=== PATIENT | male | born 1940 | race Caucasian/White ===

== ENCOUNTER 2017-07-10 15:21 | Inpatient (IN) ==
[2017-07-10] MEDS ORDERED: Ondansetron 4 MG/2 ML VIAL IVP PRN (20:28)
[2017-07-10] MEDS ORDERED: Naloxone 0.4 MG/ML INJ IVP PRN (20:28)
[2017-07-10] MEDS ORDERED: *HR* Dextrose 50 % in Water (Syg) 50 ML SYRINGE IVP PRN (20:32)
[2017-07-10] MEDS ORDERED: D5% in Water 1,000 ML IVC PRN (20:32)
[2017-07-10] MEDS ORDERED: Dextrose Gel 15 GM PO PRN ×2 (20:32)
--- NOTE | 2017-07-10 20:40 | Internal Med History&Physical ---
Date of Encounter: 07/10/17 Time of Encounter: 20:10 Assessment and Plan (1) Lower GI bleed Current visit: No Status: Acute Positive stool occult H&H low but acceptable, unclear of patient's baseline Hgb No recurrent bleeding episodes reported since arrival to [facility] will closely monitor H&H IV PPI NPO after midnight IV fluids F/U GI consult in am hold Aspirin at this time (2) Hyperkalemia Current visit: No Status: Acute Pt to receive Kayxelate, Calcium gluconate noted to have sinus tachycardia no discomfort reported will closely monitor (3) ROGER (acute kidney injury) Current visit: Yes Status: Acute Unclear of patient's baseline renal function He may have underlying CKD and this could be his baseline renal function will closely monitor at this time hold lisinopril at this time avoid nephrotoxic agents (4) HTN (hypertension) Current visit: Yes Status: Chronic BP within acceptable range pt reports of taking home meds this morning will hold lisinopril at this time, given renal function (unclear of baseline renal function) Hydralazine 10mg IV q6h prn SBP>160 will closely monitor BP Qualifiers: Hypertension type: essential hypertension Qualified Code(s): I10 - Essential (primary) hypertension (5) Diabetes mellitus Current visit: Yes Status: Chronic Repeat FS within acceptable range will continue home insulin dosing accuchecks q6h while NPO IV fluids will closely monitor FS and BG sliding scale insulin algorithm as needed Qualifiers: Diabetes mellitus type: type 2 Diabetes mellitus complication status: with unspecified complications Diabetes mellitus halfway insulin use: with lobsterman use Qualified Code(s): E11.8 - Type 2 diabetes mellitus with unspecified complications; 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 De Luna is a 77 year old male with PMH of HTN, DM, s/p aortic valve replacement, GERD, and morbid obesity who is transferred from [facility] for evaluation of LGIB. Patient reports of having BRBPR for the last three days. He states the blood is not mixed with his stools and has been getting worst for the last three days. 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 After arrival to the ER, he was found to have positive stool occult and was transferred to [facility] for further evaluation. AT this time he is resting in bed and denies any abd pain, n/v, fever, or chills. He states he had another episode of BRBPR at [facility]. Reports of taking aspirin but no other blood thinners. Denies any prior episodes of GI bleed. Reports of having a colonoscopy years ago which was normal as per the patient. He denies any trauma to the head from the fall, denies any headache,lightheadedness, sob, chest pain at this time. Denies any syncope or LOC preceding the fall. Social History: Never smoker, denies alcohol use Code status: Full code, appoints his (Sania De [phone]) as his POA Past Med Surg Social Fam HX - Past Medical History Medical history: arthritis, diabetes, GERD, hyperlipidemia Psychiatric history: depression - Past Surgical History Surgical History: cholecystectomy - Social History Smoking Status: Never smoker Smokeless Tobacco Status: No Alcohol use: none Drug use: none Internal Medicine - H&P: Meds Aspirin [Ecotrin] 325 mg PO DAILY 07/10/17 [History] Buspirone HCl [Buspar] 10 mg PO TID 07/10/17 [History] FLUoxetine HCl [PROzac] 20 mg PO DAILY 07/10/17 [History] Insulin ASPART [Novolog] 5 unit SQ BID 07/10/17 [History] Insulin Glargine [Lantus] 15 unit SQ BID 07/10/17 [History] Lisinopril [Zestril] 40 mg PO DAILY 07/10/17 [History] Metformin HCl [Glucophage] 1,000 mg PO BID 07/10/17 [History] Omeprazole 20 mg PO DAILY 07/10/17 [History] Oxybutynin [Ditropan] 5 mg PO BID 07/10/17 [History] 3 Allergy/AdvReac Type Severity Reaction Status Date / Time No Known Allergies Allergy Verified 07/10/17 10:45 All Systems PM: A 10-system review of systems was performed and is negative for pertinent findings except as documented above in the HPI. - Constitutional Constitutional: as per HPI - Constitutional Vitals: Temp Pulse Resp BP Pulse Ox 98.1 F 101 21 145/96 95 07/10/17 19:48 07/10/17 19:48 07/10/17 19:48 07/10/17 19:48 07/10/17 19:48 General appearance: Present: cooperative, A&O X 3, morbidly obese, pleasant, no acute distress, answers questions appropriately - Head Head exam: Present: atraumatic, normocephalic - Eye Eye exam: Present: conjuntiva pink, sclera anicteric - Respiratory Respiratory exam: Present: CTAB. Absent: respiratory distress, wheezes - Cardiovascular Cardiovascular exam: Present: clicks, +S1, +S2, tachycardia - Extremities Exam Extremities exam: Present: pedal edema (1+pitting edema in b/l LE ), warm, radial pulses palpable and symmetrical. Absent: calf tenderness Additional comments: left hand skin laceration - Neurological Exam Neurological exam: Present: alert, oriented X3 - Psychiatric Psychiatric exam: Present: normal affect, normal mood
[2017-07-10] MEDS: D5% in 0.45% NACL 1,000 ML IVC SCH (20:44)
[2017-07-10 21:03] LABS: Basophils % 0.3 %; Eosinophils # 0.1 K/mcL (0.0-0.6); Eosinophils % 1.6 %; Hematocrit 30.4 % (37.5-50.1); Hemoglobin 9.5 g/dL (12.9-16.9); Immature Platelets 1.1 % (1.1-6.1); Lymphocytes # 2.1 K/mcL (0.6-4.6); Lymphocytes % 23.9 %; Mean Corpuscular HGB Conc 31.3 g/dL (31.6-35.5); Mean Corpuscular Hemoglobin 25.2 pg (28.0-33.3); Mean Corpuscular Volume 80.6 fL (83.0-100.0); Mean Platelet Volume 8.3 fL (9.4-12.4); Monocytes # 0.7 K/mcL (0.0-1.3); Monocytes % 7.8 %; Neutrophils # 5.7 K/mcL (1.6-8.9); Platelet Count 266 K/mcL (140-400); Red Blood Count 3.77 M/mcL (4.19-5.50); Red Cell Distribution Width 14.6 % (11.5-14.5); Segmented Neutrophils % 65.4 %
[2017-07-10] MEDS: Insulin LISPRO 300 UNITS/3 ML VIAL SQ SCH (21:04)
[2017-07-10 21:15] LABS: BUN/Creatinine Ratio 29 (6-26); Blood Urea Nitrogen 35 mg/dL (8-26); Calcium 8.2 mg/dL (8.6-10.8); Carbon Dioxide 20 mEq/L (19-29); Chloride 107 mEq/L (98-109); Glucose 110 mg/dL (70-99); Magnesium 1.9 mg/dL (1.6-2.6); Osmolality,Calculated 293 (280-300); Phosphorous 2.3 mg/dL (2.3-4.7); Potassium 4.2 mEq/L (3.5-4.5); Sodium 137 mEq/L (136-145); eGFR For African Americans > 60 (> 60); eGFR For Non-African Americans 58 (> 60)
[2017-07-10] MEDS: Calcium Gluconate 1,000 MG in D5% in Water 100 ML IVPB ONE ×2 (21:20→21:39)
[2017-07-10] MEDS: Pantoprazole 40 MG VIAL IVP SCH (21:22)
[2017-07-10] MEDS: Insulin DETEMIR 100 UNIT/ML X5UNITS SQ SCH (21:36)
[2017-07-11] MEDS: D5% in 0.45% NACL 1,000 ML IVC SCH (07:26)
[2017-07-11] MEDS: Insulin LISPRO 300 UNITS/3 ML VIAL SQ SCH ×4 (07:40→17:15)
[2017-07-11] MEDS ORDERED: Lisinopril 20 MG TABLET PO SCH (09:00)
[2017-07-11] MEDS: Pantoprazole 40 MG VIAL IVP SCH ×2 (09:18→21:03)
[2017-07-11] MEDS: FLUoxetine 20 MG CAPSULE PO SCH (09:18)
[2017-07-11] MEDS: Insulin DETEMIR 100 UNIT/ML X5UNITS SQ SCH ×2 (09:44→21:03)
[2017-07-11 10:26] LABS: Basophils % 0.5 %; Eosinophils # 0.2 K/mcL (0.0-0.6); Eosinophils % 2.3 %; Hemoglobin 10.7 g/dL (12.9-16.9); Immature Granulocytes % 0.8 % (0-4); Lymphocytes # 1.5 K/mcL (0.6-4.6); Lymphocytes % 17.7 %; Mean Corpuscular HGB Conc 31.5 g/dL (31.6-35.5); Mean Corpuscular Hemoglobin 25.5 pg (28.0-33.3); Mean Corpuscular Volume 81.1 fL (83.0-100.0); Mean Platelet Volume 8.5 fL (9.4-12.4); Monocytes # 0.5 K/mcL (0.0-1.3); Monocytes % 6.2 %; Neutrophils # 6.2 K/mcL (1.6-8.9); Platelet Count 275 K/mcL (140-400); Red Blood Count 4.19 M/mcL (4.19-5.50); Red Cell Distribution Width 14.6 % (11.5-14.5); Segmented Neutrophils % 72.5 %
[2017-07-11 10:37] LABS: Alanine Aminotransferase 16 Units/L (0-55); Albumin 3.4 g/dL (3.5-5.0); Alkaline Phosphatase 80 Units/L (38-126); Aspartate Amino Transferase 15 Units/L (5-34); BUN/Creatinine Ratio 21 (6-26); Bilirubin,Total 0.4 mg/dL (0.2-1.2); Calcium 8.7 mg/dL (8.6-10.8); Carbon Dioxide 20 mEq/L (19-29); Chloride 106 mEq/L (98-109); Globulin 3.4 g/dL (2.4-3.5); Glucose 192 mg/dL (70-99); Magnesium 1.7 mg/dL (1.6-2.6); Osmolality,Calculated 293 (280-300); Phosphorous 2.4 mg/dL (2.3-4.7); Potassium 4.5 mEq/L (3.5-4.5); Sodium 137 mEq/L (136-145); Total Protein 6.8 g/dL (6.0-8.3); eGFR For African Americans > 60 (> 60); eGFR For Non-African Americans > 60 (> 60)
[2017-07-11 10:45] LABS: Blood Urea Nitrogen 23 mg/dL (8-26)
--- NOTE | 2017-07-11 11:12 | Internal Med Progress Note ---
Date of Encounter: 07/11/17 Time of Encounter: 11:11 - Assessment and plan (1) Lower GI bleed Current Visit: No Status: Acute Assessment and plan: GI consult. Plan for colonoscopy tomorrow. Avoid antiplatelets and antithrombotic. (2) HTN (hypertension) Current Visit: Yes Status: Chronic Assessment and plan: We will continue his home meds for blood pressure. Qualifiers: Hypertension type: essential hypertension Qualified Code(s): I10 - Essential (primary) hypertension (3) Diabetes mellitus Current Visit: Yes Status: Chronic Assessment and plan: We will treat him with basal insulin and sliding scale pre-meal coverage. 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 Avoid nephrotoxins. Creatinine has improved today. (5) DVT prophylaxis Current Visit: Yes Status: Acute (6) Morbid obesity with BMI of 40.0-44.9, adult Current Visit: Yes Status: Chronic Assessment and plan: Outpatient weight loss regimen. - Subjective Interval history: Patient reports one episode of dizziness/lightheadedness yesterday, no syncope or chest pain. He has had 3 days of multiple episodes of bright red blood per rectum. Denies associated abdominal pain, chest pain and shortness of breath. - Constitutional Vitals: Temp Pulse Resp BP Pulse Ox 97.9 F 104 20 133/83 97 07/11/17 07:47 07/11/17 07:47 07/11/17 07:47 07/11/17 07:47 07/11/17 07:47 General appearance: Present: cooperative, A&O X 3, morbidly obese, pleasant, no acute distress, answers questions appropriately - Eye Eye exam: Present: PERRL, conjuntiva pink, sclera anicteric Pupils: Present: PERRL - Respiratory Respiratory exam: Present: CTAB. Absent: accessory muscle use, rales, rhonchi, wheezes - Cardiovascular Cardiovascular exam: Present: RRR, +S1, +S2. Absent: diastolic murmur, gallop, rubs, systolic murmur - GI/Abdominal GI/Abdominal exam: Present: normal bowel sounds, soft, no peritoneal signs. Absent: distended, tenderness - Extremities Exam Extremities exam: Present: warm, radial pulses palpable and symmetrical. Absent : calf tenderness, cyanotic, pedal edema - Skin Skin exam: Present: dry, intact Internal Medicine: Result - Labs CBC & Chem 7: 07/11/17 10:15 07/11/17 10:15 Labs: Short CBC 07/10/17 07/11/17 Range/Units 20:52 10:15 WBC 8.7 8.6 (4.3-11.1) K/mcL Hgb 9.5 L 10.7 L (12.9-16.9) g/dL Hct 30.4 L 34.0 L (37.5-50.1) % Plt Count 266 275 (140-400) K/mcL Neutrophils # 5.7 6.2 (1.6-8.9) K/mcL BMP 07/10/17 07/11/17 20:52 10:15 Sodium 137 137 Potassium 4.2 D 4.5 Chloride 107 106 Carbon Dioxide 20 20 BUN 35 H 23 D Creatinine 1.22 1.11 Glucose 110 H 192 H Calcium 8.2 L 8.7 Liver Function 07/11/17 Range/Units 10:15 Total Bilirubin 0.4 (0.2-1.2) mg/dL AST 15 (5-34) Units/L ALT 16 (0-55) Units/L Alkaline Phosphatase 80 (38-126) Units/L Albumin 3.4 L (3.5-5.0) g/dL Consult Discharge Plan - Plan Referrals: Alice Soriano CNP [Primary Care Provider] - 07/19/17 3:15 pm
--- NOTE | 2017-07-11 11:58 | Gastroenterology Consult Note ---
Date of Encounter: 07/11/17 Time of Encounter: 10:45 - Assessment and plan (1) Lower GI bleed Current Visit: No Status: Acute Assessment and plan: Patient having BRBPR for 3 days prior to admission which had been worsening. Fecal occult blood test was positive. Plan for colonoscopy tomorrow. Clear liquid diet today, no red or purple. NPO at midnight. If unable tolerate NuLytely please use MiraLAX prep. If not clear by 6 AM, give 2 tap water enemas. (2) Anemia Current Visit: Yes Status: Acute Assessment and plan: Psychiatry to lower GI bleeding. Hemoglobin 9.5 yesterday and today Hgb 10.7. 2 monitor CBC and transfuse PRBC as needed. Plan for colonoscopy tomorrow. Iron and ferritin pending. Qualifiers: Anemia type: unspecified type Qualified Code(s): D64.9 - Anemia, unspecified - Time Spent With Patient Total time spent is greater than 50% in coordination of care (as documented) at patient's floor/unit and/or counseling patient: GI History of Present Illness - Data of Consult Patient: new to practice Consult date: 07/11/17 Requesting Physician: Omega Hurtado MD - Consult Narrative Reason for consult: LGIB History of present illness: Mr. De Luna is a 77 year old male with PMHx of arthritis, diabetes, GERD, hyperlipidemia, HTN,s/p aortic valve replacement, and morbid obesity who was transferred from [facility] ED for evaluation of a lower GI bleed. Patient reports having BRBPR for 3 days prior to admission, which has been worsening. 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 After arrival to the ER, he was found to have positive stool occult and was transferred to [facility] for further evaluation. He denies fever, chills, chest pain , abdominal pain, nausea, vomiting. Procedures: EGD 01/08/2009 Dr. Mckenna: Minimal inflammation, H. pylori negative. Colonoscopy 05/07/2009 Dr. Mckenna NSAIDs: ASA Anticoagulation: None Past Med Surg Social Fam HX - Past Medical History Medical history: arthritis, diabetes, GERD, hyperlipidemia Psychiatric history: depression - Past Surgical History Surgical History: cholecystectomy - Social History Smoking Status: Never smoker Smokeless Tobacco Status: No Alcohol use: none Drug use: none - Gastrointestinal Gastrointestinal: Present: as per HPI - Constitutional Constitutional: as per HPI - EENT Eyes: as per HPI Ears: Present: as per HPI Nose, mouth and throat: Present: as per HPI - Cardiovascular Cardiovascular ROS: Present: as per HPI - Respiratory Respiratory IM: Present: as per HPI - Genitourinary Genitourinary: Absent: change in color, Urinary frequency - Neurological ROS Neurological GI: Present: as per HPI - Hematologic/Lymphatic Hematologic/Lymphatic pediatric: Present: as per HPI - Musculoskeletal Musculoskeletal ROS GI: Present: as per HPI - Integumentary Integumentary GI: Present: as per HPI - Psychiatric ROS Psychiatric GI: Present: as per HPI - Endocrine Endocrine IM: Present: as per HPI - Constitutional Vitals: Temp Pulse Resp BP Pulse Ox 97.7 F 86 21 128/67 99 07/11/17 11:49 07/11/17 11:49 07/11/17 11:49 07/11/17 11:49 07/11/17 11:49 General appearance: Present: cooperative, A&O X 3, no acute distress, answers questions appropriately - Head Head exam: Present: atraumatic, normocephalic - Eye Eye exam: Present: normal appearance, sclera anicteric - ENT ENT exam: Present: mucous membranes dry - Neck Neck exam general surgery: Present: normal inspection, trachea midline - Respiratory Respiratory exam: Present: decreased breath sounds, CTAB - Cardiovascular Cardiovascular exam: Present: RRR, +S1, +S2 - GI/Abdominal GI/Abdominal exam: Present: soft, no peritoneal signs. Absent: distended, firm , guarding, tenderness - Rectal Rectal exam: Present: deferred - Extremities Exam Extremities exam: Present: warm - Neurological Exam Neurological exam: Present: no focal deficits - Psychiatric Psychiatric exam: Present: normal affect, normal mood - Skin Skin exam: Present: dry, intact, normal color, warm Results - Labs CBC & Chem 7: 07/11/17 10:15 07/11/17 10:15 Labs: Last Result Calcium 8.7 mg/dL (8.6-10.8) 07/11/17 10:15 Entire Visit Hgb 10.7 g/dL (12.9-16.9) L 07/11/17 10:15 Hct 34.0 % (37.5-50.1) L 07/11/17 10:15 Total Bilirubin 0.4 mg/dL (0.2-1.2) 07/11/17 10:15 AST 15 Units/L (5-34) 07/11/17 10:15 ALT 16 Units/L (0-55) 07/11/17 10:15 Consult Discharge Plan - Plan Referrals: Alice Soriano CNP [Primary Care Provider] - 07/19/17 3:15 pm Mario Alberto Samuels MD [Partnered Physician] - (SENT WEB REQUEST ON 07-11-17 @ [id number])
[2017-07-11 12:27] LABS: % Iron Saturation 15 % (20-55); Iron 52 mcg/dL (65-175); Transferrin 255 mg/dL (174-364)
[2017-07-11 12:50] LABS: Ferritin 65 ng/ml (22-275)
[2017-07-11] MEDS ORDERED: Methyl Salicylate/Menthol 28 GM TUBE TP PRN (15:40)
[2017-07-11] MEDS ORDERED: SODIUM CHLORIDE/NAHCO3/KCL/PEG 4,000 ML SOLN.RECON PO ONE (17:00)
[2017-07-12 05:01] LABS: Basophils % 0.5 %; Eosinophils # 0.3 K/mcL (0.0-0.6); Eosinophils % 3.1 %; Hematocrit 32.9 % (37.5-50.1); Hemoglobin 10.4 g/dL (12.9-16.9); Immature Granulocytes % 0.8 % (0-4); Lymphocytes # 2.2 K/mcL (0.6-4.6); Lymphocytes % 26.3 %; Mean Corpuscular HGB Conc 31.6 g/dL (31.6-35.5); Mean Corpuscular Hemoglobin 25.6 pg (28.0-33.3); Mean Platelet Volume 8.6 fL (9.4-12.4); Monocytes # 0.8 K/mcL (0.0-1.3); Monocytes % 8.9 %; Neutrophils # 5.2 K/mcL (1.6-8.9); Platelet Count 265 K/mcL (140-400); Red Blood Count 4.06 M/mcL (4.19-5.50); Red Cell Distribution Width 14.7 % (11.5-14.5); Segmented Neutrophils % 60.4 %
[2017-07-12 05:15] LABS: BUN/Creatinine Ratio 16 (6-26); Blood Urea Nitrogen 17 mg/dL (8-26); Calcium 8.8 mg/dL (8.6-10.8); Carbon Dioxide 21 mEq/L (19-29); Chloride 103 mEq/L (98-109); Glucose 151 mg/dL (70-99); Osmolality,Calculated 284 (280-300); Potassium 3.8 mEq/L (3.5-4.5); Sodium 135 mEq/L (136-145); eGFR For African Americans > 60 (> 60); eGFR For Non-African Americans > 60 (> 60)
[2017-07-12] MEDS: Insulin LISPRO 300 UNITS/3 ML VIAL SQ SCH ×4 (06:08→17:08)
--- NOTE | 2017-07-12 07:53 | Internal Med Progress Note ---
<Jennifer Pineda - Last Filed: 07/12/17 17:11> Date of Encounter: 07/12/17 Time of Encounter: 11:30 - Assessment and plan (1) Lower GI bleed Status: Acute Assessment and plan: BRBPR x 3 days. GI consulted and plans for colonoscopy today. Avoid antiplatelets and antithrombotic. Possible d/c home tomorrow depending upon colonoscopy results. Patient's hemoglobin is stable at 10.4. (2) ROGER (acute kidney injury) Status: Resolved Assessment and plan: Monitor kidney function. Avoid nephrotoxins. Creatinine normal. ROGER resolved. (3) Status post fall Status: Acute Assessment and plan: Fell without LOC after 3 days of BRBPR and obtained a hand laceration. Fall most likely due to decrease in hemoglobin 2/2 LGIB. F of 65% with normal L and R ventricular function, atypical septal motion consistent with post-operative status. (4) Diabetes mellitus Status: Chronic Assessment and plan: We will treat him with basal insulin and sliding scale pre-meal coverage. 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 Blood pressure is fairly well controlled. Plan: - [id number] PO daily - Hydralazine 10mg IVP Q6hr prn - Qualifiers: Hypertension type: essential hypertension Qualified Code(s): I10 - Essential (primary) hypertension (6) Morbid obesity with BMI of 40.0-44.9, adult Status: Chronic Assessment and plan: Outpatient weight loss regimen. (7) Hyperkalemia Status: Resolved Assessment and plan: Initial presenting K=5.8 at [facility]. Given Kayxelate and Calcium gluconate. Hyperkalemia has resolved. (8) DVT prophylaxis Status: Acute Assessment and plan: SCD due to LGIB should not be put on anticoagulants. (9) Anxiety Status: Acute Assessment and plan: Continue home medications of Buspar and Prozac. (10) Anemia Status: Acute Assessment and plan: Initially Hemoglobin =9.5. MCV currently 81. Macrocytic anemia with Fe=52, %sat = 15, normal transferrin and ferritin. Currently 10.4 improved since admission. Stable. Qualifiers: Anemia type: unspecified type Qualified Code(s): D64.9 - Anemia, unspecified - Subjective Interval history: Patient is a 77-year-old male with a past medical history of hypertension, diabetes, status post aortic valve replacement, and GERD who was discharged and admitted from [facility] for evaluation of lower GI bleed for 3 days post- fall. Today patient says that he feels like he is doing better. He says that his stools have gotten darker in that they are not bright red anymore. Patient is currently on GoLYTELY as he has a colonoscopy could be scheduled for 4:30pm. Patient currently denies nausea, vomiting, abdominal pain, shortness breath, chest pain. - Constitutional Vitals: Temp Pulse Resp BP Pulse Ox 97.9 F 126 16 154/104 99 07/12/17 03:55 07/12/17 03:55 07/12/17 03:55 07/12/17 03:55 07/12/17 03:55 General appearance: Present: cooperative, A&O X 3, morbidly obese, pleasant, no acute distress, answers questions appropriately Exam: Constitutional: Alert, in no acute distress, well nourished, well developed. Head: Normocephalic, atraumatic, normal contour and symmetric, no masses, lesions or scars Heart: Normal, regular rate and rhythm, no murmurs Lungs: Clear to auscultation, no wheezes, rales, or rhonchi Abdomen: Soft, nondistended, nontender, and no masses palpable, bowel sounds present and normal, no guarding or rigidity. Extremities: No clubbing, cyanosis, or edema, radial pulse +2/4, capillary refill <2sec. Skin: Skin warm and dry, no lesions, no rashes, no jaundice Neurologic: Cranial nerves II through XII grossly intact, no focal deficits, strength within normal limits in all extremities Psych: Cooperative with exam, good eye contact, cognitive function intact, judgment good insight good, speech clear, thought process logical, and goal directed Internal Medicine: Result - Labs CBC & Chem 7: 07/12/17 04:20 07/12/17 04:20 Labs: Short CBC 07/11/17 07/12/17 Range/Units 10:15 04:20 WBC 8.6 8.5 (4.3-11.1) K/mcL Hgb 10.7 L 10.4 L (12.9-16.9) g/dL Hct 34.0 L 32.9 L (37.5-50.1) % Plt Count 275 265 (140-400) K/mcL Neutrophils # 6.2 5.2 (1.6-8.9) K/mcL BMP 07/11/17 07/12/17 10:15 04:20 Sodium 137 135 L Potassium 4.5 3.8 Chloride 106 103 Carbon Dioxide 20 21 BUN 23 D 17 Creatinine 1.11 1.09 Glucose 192 H 151 H Calcium 8.7 8.8 Liver Function 07/11/17 Range/Units 10:15 Total Bilirubin 0.4 (0.2-1.2) mg/dL AST 15 (5-34) Units/L ALT 16 (0-55) Units/L Alkaline Phosphatase 80 (38-126) Units/L Albumin 3.4 L (3.5-5.0) g/dL - VTE Documentation of Mechanical Device: Intermittent pneumatic compression device Consult Discharge Plan - Plan Instructions: Gastrointestinal Bleeding (DC), Diabetes Mellitus Type 2 in Adults (DC) Additional Instructions: - Follow up with your primary care physician in 1-2 weeks. - Follow up with Dr. Samuels in 1-2 weeks. - Hold Aspirin for 1 week then can resume. Referrals: Alice Soriano CNP [Primary Care Provider] - 07/19/17 3:15 pm Mario Alberto Samuels MD [Partnered Physician] - (SENT WEB REQUEST ON 07-11-17 @ [phone]) Prescriptions: Omeprazole 40 mg PO DAILY #28 tablet. <Omega Hurtado - Last Filed: 07/13/17 17:18> Date of Encounter: 07/12/17 - Assessment and plan (1) Lower GI bleed Status: Acute (2) HTN (hypertension) Status: Chronic Qualifiers: Hypertension type: essential hypertension Qualified Code(s): I10 - Essential (primary) hypertension (3) Diabetes mellitus Status: Chronic Qualifiers: Diabetes mellitus type: type 2 Diabetes mellitus complication status: with unspecified complications Diabetes mellitus manager intermediate insulin use: with manager intermediate use Qualified Code(s): E11.8 - Type 2 diabetes mellitus with unspecified complications; Z79.4 - manager intermediate (current) use of insulin (4) ROGER (acute kidney injury) Status: Resolved (5) DVT prophylaxis Status: Acute (6) Morbid obesity with BMI of 40.0-44.9, adult Status: Chronic - Constitutional Vitals: Temp Pulse Resp BP Pulse Ox 99.1 F 99 16 146/103 96 07/12/17 11:14 07/12/17 13:50 07/12/17 11:14 07/12/17 11:14 07/12/17 11:14 Internal Medicine: Result - Labs CBC & Chem 7: 07/13/17 04:05 07/13/17 04:05 Labs: Short CBC 07/12/17 Range/Units 04:20 WBC 8.5 (4.3-11.1) K/mcL Hgb 10.4 L (12.9-16.9) g/dL Hct 32.9 L (37.5-50.1) % Plt Count 265 (140-400) K/mcL Neutrophils # 5.2 (1.6-8.9) K/mcL BMP 07/12/17 04:20 Sodium 135 L Potassium 3.8 Chloride 103 Carbon Dioxide 21 BUN 17 Creatinine 1.09 Glucose 151 H Calcium 8.8 - Impressions Impressions Echocardiogram 07/11/17 20:55 Impressions: LVEF 60-65%. Normal LV chamber size and function. Mild concentric left ventricular hypertrophy. Mild left ventricular diastolic dysfunction. Atypical septal motion consistent with post-operative status. Normal right ventricular structure and function. Moderately dilated left atrium. Bioprosthetic aortic valve appears well seated in the LVOT. Leaflets were not well visualized. 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 Correlate with size and type of valve. No aortic regurgitation. No evidence of pulmonary hypertension. Left Ventricular Wall Motion: Rest Echo Findings All wall segments showed normal motion. Findings: Study Quality * Technically adequate exam. ECG Findings * Normal sinus rhythm. Left Ventricle * LVEF 60-65%. * Normal LV chamber size and function. * Mild concentric left ventricular hypertrophy. * Mild left ventricular diastolic dysfunction. * Atypical septal motion consistent with post-operative status. Right Ventricle * Normal right ventricular structure and function. Left Atrium * Moderately dilated left atrium. Right Atrium * Mildly dilated right atrium. Aortic Valve * Bioprosthetic aortic valve appears well seated in the LVOT. Leaflets were not well visualized. 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 Correlate with size and type of valve. * No aortic regurgitation. Mitral Valve * Mild mitral annular calcification * No mitral stenosis. * No mitral regurgitation. Tricuspid Valve * Normal tricuspid valve structure and function. * Trace tricuspid regurgitation. * No evidence of pulmonary hypertension. Pulmonic Valve * Pulmonic valve is not well visualized. * No pulmonic regurgitation. Aorta * Normally sized aortic root. Pericardium * The pericardium appears normal. IVC * Normal IVC dimensions and inspiratory collapse. Pulmonary Artery * Normal visualized portions of the main pulmonary artery. - Attending Attestation I examined this patient and my medical decision-making was reviewed with the Resident Physician. I agree with the documented findings, disposition and treatment plan as described except to the extent set forth below. Patient is in no acute distress. He had had no recurrent rectal bleeding today. His abdomen is obese, soft, nontender. Plan: Colonoscopy today. We will follow up hemoglobin and hematocrit.
[2017-07-12] MEDS: Insulin DETEMIR 100 UNIT/ML X5UNITS SQ SCH ×2 (09:01→20:46)
[2017-07-12] MEDS: Pantoprazole 40 MG VIAL IVP SCH ×2 (09:02→20:46)
[2017-07-12] MEDS: FLUoxetine 20 MG CAPSULE PO SCH (09:02)
[2017-07-12] MEDS ORDERED: *HR* Midazolam HCl 5 MG/5 ML VIAL IVP ONE (18:16)
[2017-07-12] MEDS ORDERED: *HR* FentaNYL (PF) 100 MCG/2 ML VIAL ONE (18:17)
[2017-07-12] MEDS ORDERED: *HR* FentaNYL (PF) 100 MCG/2 ML VIAL IVP PRN (18:34)
[2017-07-12] MEDS ORDERED: *HR* Midazolam HCl 5 MG/5 ML VIAL IVP PRN (18:34)
[2017-07-12] MEDS ORDERED: Simethicone 40 MG/0.6 ML MLS IR ONE (18:34)
--- NOTE | 2017-07-12 18:35 | Pre-Sedation Evaluation ---
Pre-sedation evaluation - Pre-sedation checklist Date of procedure: 07/12/17 Recent Vitals: Last Vital Signs Temp 99.1 F 07/12/17 11:14 Pulse 99 07/12/17 13:50 Resp 16 07/12/17 11:14 BP 146/103 07/12/17 11:14 Pulse Ox 96 07/12/17 11:14 ASA Classification *see protocol: CLASS III-Severe systemic disease Plan of Care: Pt appropriate candidate for procedure/moderate/conscious sedation , Risks/benefits of procedure/sedation discussed w/ patient/family
[2017-07-12] MEDS ORDERED: Polyethylene Glycol 3350 255 GM POWDER PO ONE (19:00)
[2017-07-13] MEDS: Insulin LISPRO 300 UNITS/3 ML VIAL SQ SCH ×2 (02:11→05:32)
[2017-07-13 04:56] LABS: Basophils % 0.5 %; Eosinophils # 0.2 K/mcL (0.0-0.6); Hematocrit 34.8 % (37.5-50.1); Hemoglobin 10.8 g/dL (12.9-16.9); Immature Granulocytes % 1.2 % (0-4); Lymphocytes # 1.7 K/mcL (0.6-4.6); Lymphocytes % 22.4 %; Mean Corpuscular Hemoglobin 25.5 pg (28.0-33.3); Mean Corpuscular Volume 82.3 fL (83.0-100.0); Mean Platelet Volume 8.6 fL (9.4-12.4); Monocytes # 0.8 K/mcL (0.0-1.3); Monocytes % 10.4 %; Neutrophils # 4.6 K/mcL (1.6-8.9); Nucleated Red Blood Cells 0.3 /100 WBC (0); Platelet Count 276 K/mcL (140-400); Red Blood Count 4.23 M/mcL (4.19-5.50); Red Cell Distribution Width 14.9 % (11.5-14.5); Segmented Neutrophils % 62.5 %
[2017-07-13 05:23] LABS: BUN/Creatinine Ratio 14 (6-26); Blood Urea Nitrogen 15 mg/dL (8-26); Calcium 9.2 mg/dL (8.6-10.8); Carbon Dioxide 19 mEq/L (19-29); Chloride 104 mEq/L (98-109); Glucose 149 mg/dL (70-99); Magnesium 1.7 mg/dL (1.6-2.6); Osmolality,Calculated 286 (280-300); Potassium 4.2 mEq/L (3.5-4.5); Sodium 136 mEq/L (136-145); eGFR For African Americans > 60 (> 60); eGFR For Non-African Americans > 60 (> 60)
[2017-07-13] MEDS: Pantoprazole 40 MG VIAL IVP SCH (08:25)
[2017-07-13] MEDS: Insulin DETEMIR 100 UNIT/ML X5UNITS SQ SCH (08:25)
--- NOTE | 2017-07-13 09:22 | Anesthesia Evaluation PreOp ---
Date of Encounter: 07/13/17 Time of Encounter: 09:20 - Past History Planned Operation: Colonoscopy Cardiac History: HTN, Cardiac Surgery (S/P AVR) Pulmonary History: Former smoker (quit 40 years) [employer]ER History: Denies Any Significant HX Other Medical History: Diabetes Type II, GERD, Other (depression) Anesthesia History: No Prior Anesthetic Complications, Past Anesthesia Alcohol Use: none Drug use: none Medications and Allergies Aspirin [Ecotrin] 325 mg PO DAILY 07/10/17 [History] Buspirone HCl [Buspar] 10 mg PO TID 07/10/17 [History] FLUoxetine HCl [PROzac] 20 mg PO DAILY 07/10/17 [History] Insulin ASPART [Novolog] 5 unit SQ BID 07/10/17 [History] Insulin Glargine [Lantus] 15 unit SQ BID 07/10/17 [History] Lisinopril [Zestril] 40 mg PO DAILY 07/10/17 [History] Metformin HCl [Glucophage] 1,000 mg PO BID 07/10/17 [History] Omeprazole 20 mg PO DAILY 07/10/17 [History] Oxybutynin [Ditropan] 5 mg PO BID 07/10/17 [History] 3 Allergy/AdvReac Type Severity Reaction Status Date / Time No Known Allergies Allergy Verified 07/10/17 10:45 - Meds/Allergy Pre-op Review Medications Reviewed: Yes Allergies Reviewed: Yes Beta Blockers on Current Med List: No Anesthesia Results - Labs 07/13/17 04:05 07/13/17 04:05 - Imaging EKG: report reviewed (07/10/2017 SINUS TACHYCARDIA RIGHT BUNDLE BRANCH BLOCK) Additional studies: 07/11/2017 Echo LVEF 60-65% mild concentric LVH mild LV diastolic dysfunction moderately dilated LA bioprosthetic AV 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, mean gradient 22 mm Hg Anesthesia Exam Vital Signs/O2 Sat/Glucose, Most Recent Temp Pulse Resp BP Pulse Ox 97.0 F L 94 16 169/99 96 07/13/17 09:22 07/13/17 09:22 07/13/17 09:22 07/13/17 09:22 07/13/17 09:22 Blood Glucose* 182 Height: 5'7''/1.7 m Weight: 255 lbs/115.7 kg NPO (# of Hours): 8 Pain Scale: 0 Pain Scale Used: Numeric (1 - 10) - HEENT Pupil (Motor): EOMI Mallampati: II Teeth: Edentulous Oral Opening: Greater than 3 - [employer]ER LOC: Oriented [employer]ER Motor: Normal RUE, Normal LUE, Normal RLE, Normal LLE, Normal Face [employer]ER Sensory: Normal: RUE, LUE, RLE, LLE, Face - Cardiac Rhythm: Regular Murmur: None - Pulmonary Breath Sounds: bilateral Clear (distant BS) Respiratory Effort: Symmetrical Anesthesia Assess/Plan ASA Score: 3 Modified Tom Scale for Level of Consciousness: Cooperative, oriented, and tranquil Anesthetic Plan: MAC Monitoring Plan: Standard Monitors
[2017-07-13 09:23] VITALS: BP 169/99
[2017-07-13] MEDS ORDERED: 0.9 % Sodium Chloride 1,000 ML IVC SCH (09:30)
[2017-07-13] MEDS: FLUoxetine 20 MG CAPSULE PO SCH (10:44)
--- NOTE | 2017-07-13 11:31 | Discharge Summary ---
<Jennifer Pineda - Last Filed: 07/13/17 16:34> Date of Encounter: 07/13/17 Time of Encounter: 10:00 - Discharge Diagnosis (1) Lower GI bleed Priority: Primary Status: Acute (2) ROGER (acute kidney injury) Priority: Primary Status: Resolved (3) Status post fall Priority: Primary Status: Acute (4) Diabetes mellitus Priority: Secondary Status: Chronic Qualifiers: Diabetes mellitus type: type 2 Diabetes mellitus complication status: with unspecified complications Diabetes mellitus long term care pharmacist insulin use: with halfway use Qualified Code(s): E11.8 - Type 2 diabetes mellitus with unspecified complications; 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 of 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 (5) HTN (hypertension) Priority: Secondary Status: Chronic Qualifiers: Hypertension type: essential hypertension Qualified Code(s): I10 - Essential (primary) hypertension (6) Morbid obesity with BMI of 40.0-44.9, adult Priority: Secondary Status: Chronic (7) Hyperkalemia Priority: Primary Status: Resolved (8) DVT prophylaxis Priority: Primary Status: Acute (9) Anxiety Priority: Secondary Status: Acute (10) Anemia Priority: Primary Status: Acute Qualifiers: Anemia type: unspecified type Qualified Code(s): D64.9 - Anemia, unspecified - Discharge Medications Prescriptions: Omeprazole 40 mg PO DAILY #28 tablet.dr Waters Medications: Buspirone HCl [Buspar] 10 mg PO TID 07/10/17 [History] FLUoxetine HCl [Prozac] 20 mg PO DAILY 07/10/17 [History] Insulin ASPART [Novolog] 5 unit SQ BID 07/10/17 [History] Insulin Glargine [Lantus] 15 unit SQ BID 07/10/17 [History] Lisinopril [Zestril] 40 mg PO DAILY 07/10/17 [History] Metformin HCl [Glucophage] 1,000 mg PO BID 07/10/17 [History] Oxybutynin [Ditropan] 5 mg PO BID 07/10/17 [History] Omeprazole 40 mg PO DAILY #28 tablet. 07/13/17 [Rx] Allergies/Adverse Reactions: 3 Allergy/AdvReac Type Severity Reaction Status Date / Time No Known Allergies Allergy Verified 07/10/17 10:45 Procedures/tests Complete & Pending: Procedures Performed prior 72 hours Category Date Time Status EV echocardiogram Routine Y 07/11/17 20:55 Completed Date of admission: 07/10/17 19:31 Primary care physician: Alice Soriano Consults: 07/10/17 20:07 Consult to Pastoral Services [CONS] Routine Comment: 07/10/17 20:30 Consult to Gastroenterology [CONS] Routine Consulting Provider: Benjamin Reed Reason for Consult: LGIB Call Completed: No - Patient Status Disposition: Home, Self-Care Condition: Good Functional capacity at discharge: independent ambulation Overall status at discharge: patient is progressing back to baseline - Discharge Instructions Instructions: Gastrointestinal Bleeding (DC), Diabetes Mellitus Type 2 in Adults (DC) Follow Up With: Alice Soriano CNP [Primary Care Provider] - 07/19/17 3:15 pm Mario Alberto Samuels MD [Partnered Physician] - (SENT WEB REQUEST ON 07-11-17 @ 1557) Additional Instructions: - Follow up with your primary care physician in 1-2 weeks. - Follow up with Dr. Samuels in 1-2 weeks. - Hold Aspirin for 1 week then can resume. - Diet and Activity Activity: increase activity as tolerated Diet: diabetic diet Hospital course: Mr. De Luna is a 77 year old male with a past medical history of hypertension, diabetes, status post aortic valve replacement, GERD and morbid obesity who presented as a transferred from [facility] for evaluation of LGIB after 3 days of bright red blood per rectum then got dizzy and fell without loss of consciousness. Patient's hemoglobin was 9.5 on admission and proceeded to go out over the next couple of days as bowel movements became darker. In no more bright red blood seen.. Colonoscopy showed multiple medium mouth diverticula in the sigmoid colon and descending colon and nonbleeding internal hemorrhoids. The hemorrhoids were grade 2 which did prolapse reduced spontaneously. Patient's discharged home with a follow-up for her primary care physician in one to 2 weeks and he will hold his aspirin for 1 week and to increase his omeprazole to 40 mg twice a day. - Time Spent with Patient Total time spent providing and/or coordinating discharge services: - Constitutional Vitals: Temp Pulse Resp BP Pulse Ox 97.0 F L 94 16 169/99 96 07/13/17 09:22 07/13/17 09:22 07/13/17 09:22 07/13/17 09:22 07/13/17 09:22 General appearance: Present: cooperative, A&O X 3, morbidly obese, pleasant, no acute distress, answers questions appropriately Exam: Constitutional: Alert, in no acute distress, well nourished, well developed. Head: Normocephalic, atraumatic, normal contour and symmetric, no masses, lesions or scars Heart: Normal, regular rate and rhythm, no murmurs Lungs: Clear to auscultation, no wheezes, rales, or rhonchi Abdomen: Soft, nondistended, nontender, and no masses palpable, bowel sounds present and normal, no guarding or rigidity. Extremities: No clubbing, cyanosis, or edema, radial pulse +2/4, capillary refill <2sec. Skin: Skin warm and dry, no lesions, no rashes, no jaundice Neurologic: Cranial nerves II through XII grossly intact, no focal deficits, strength within normal limits in all extremities Psych: Cooperative with exam, good eye contact, cognitive function intact, judgment good insight good, speech clear, thought process logical, and goal directed - VTE Documentation of Mechanical Device: Intermittent pneumatic compression device <Omega Hurtado - Last Filed: 07/13/17 18:04> Date of Encounter: 07/13/17 - Discharge Diagnosis (1) Lower GI bleed Status: Acute (2) HTN (hypertension) Status: Chronic Qualifiers: Hypertension type: essential hypertension Qualified Code(s): I10 - Essential (primary) hypertension (3) Diabetes mellitus Status: Chronic Qualifiers: Diabetes mellitus type: type 2 Diabetes mellitus complication status: with unspecified complications Diabetes mellitus long term care pharmacist insulin use: with long term care pharmacist use Qualified Code(s): E11.8 - Type 2 diabetes mellitus with unspecified complications; Z79.4 - [facility] (current) use of insulin (4) ROGER (acute kidney injury) Status: Resolved (5) DVT prophylaxis Status: Acute (6) Morbid obesity with BMI of 40.0-44.9, adult Status: Chronic Procedures/tests Complete & Pending: Procedures Performed prior 72 hours Category Date Time Status EV echocardiogram Routine Y 07/11/17 20:55 Completed Date of admission: 07/10/17 19:31 Primary care physician: Alice Soriano Consults: 07/10/17 20:07 Consult to Pastoral Services [CONS] Routine Comment: 07/10/17 20:30 Consult to Gastroenterology [CONS] Routine Consulting Provider: Benjamin Reed Reason for Consult: LGIB Call Completed: No Hospital course: Mr. De Luna is a 77 year old male - Time Spent with Patient Total time spent providing and/or coordinating discharge services: - Constitutional Vitals: Temp Pulse Resp BP Pulse Ox 97.0 F L 117 16 169/99 96 07/13/17 09:22 07/13/17 11:22 07/13/17 09:22 07/13/17 09:22 07/13/17 09:22 - Attending Attestation I examined this patient and my medical decision-making was reviewed with the Resident Physician. I agree with the documented findings, disposition and treatment plan as described except to the extent set forth below. Patient had repeat colonoscopy this morning which found no active bleeding. Only findings were diverticulosis and internal hemorrhoids. He is medically stable for discharge home.
[2017-07-13] MEDS ORDERED: FLUARIX QUAD 2017-18 36MOS UP/PF 0.5 ML SYRINGE IM ONE (11:48)
[2017-07-13] MEDS ORDERED: *HR* Propofol 200 MG/20 ML VIAL IVP ONE (12:10)
[2017-07-13] MEDS ORDERED: Lidocaine -MPF 2% 5 ML VIAL INFILT ONE (12:10)
== END 2017-07-13 12:11 | disposition home or self-care (01) | DRG 378 ==
LOC: 2NNU 19:31
PROVIDERS: ADMIT Family Medicine; ATTEND Internal Medicine

== ENCOUNTER 2019-10-28 20:35 | Inpatient (IN) ==
[2019-10-29] MEDS ORDERED: Naloxone 0.4 MG/ML INJ IVP PRN (01:27)
[2019-10-29] MEDS ORDERED: *HR* Metoprolol 5 MG/5 ML VIAL IVP SCH (01:30)
[2019-10-29] MEDS ORDERED: *HR* Dextrose 50 % in Water (Syg) 50 ML SYRINGE IVP PRN (01:30)
[2019-10-29] MEDS ORDERED: D5% in Water 1,000 ML IVC PRN (01:30)
[2019-10-29] MEDS ORDERED: Dextrose Gel 15 GM/37.5 ML TUBE PO PRN ×2 (01:30)
[2019-10-29] MEDS: Insulin LISPRO 300 UNITS/3 ML VIAL SQ SCH ×5 (01:58→21:50)
[2019-10-29 02:15] LABS: Basophils # 0.1 K/mcL (0.0-0.2); Basophils % 0.6 %; Eosinophils # 0.2 K/mcL (0.0-0.6); Eosinophils % 2.3 %; Hematocrit 39.9 % (37.5-50.1); Hemoglobin 11.9 g/dL (12.9-16.9); Immature Reticulocyte % 30.8 % (11.0-38.0); Lymphocytes # 1.3 K/mcL (0.6-4.6); Lymphocytes % 16.2 %; Mean Corpuscular HGB Conc 29.8 g/dL (31.6-35.5); Mean Corpuscular Hemoglobin 21.5 pg (28.0-33.3); Mean Corpuscular Volume 72.2 fL (83.0-100.0); Mean Platelet Volume 8.5 fL (9.4-12.4); Monocytes # 0.5 K/mcL (0.0-1.3); Monocytes % 6.4 %; Neutrophils # 6.1 K/mcL (1.6-8.9); Platelet Count 222 K/mcL (140-400); Red Blood Count 5.53 M/mcL (4.19-5.50); Red Cell Distribution Width 17.8 % (11.5-14.5); Retculocyte # 0.08 M/mcL (0.05-0.10); Reticulocyte % 1.3 % (1.6-2.8); Segmented Neutrophils % 73.5 %; White Blood Count 8.3 K/mcL (4.3-11.1)
[2019-10-29 02:17] LABS: INR 1.4; Prothrombin Time 15.5 Seconds (9.4-12.1)
[2019-10-29 02:38] LABS: Alanine Aminotransferase 14 Units/L (7-52); Albumin/Globulin Ratio 0.9 (1.1-2.2); Alkaline Phosphatase 107 Units/L (34-104); Aspartate Amino Transferase 17 Units/L (13-39); BUN/Creatinine Ratio 24 (6-26); Bilirubin,Total 0.4 mg/dL (0.3-1.0); Blood Urea Nitrogen 25 mg/dL (8-23); Calcium 8.1 mg/dL (8.6-10.3); Carbon Dioxide 21 mEq/L (23-29); Chloride 102 mEq/L (98-107); Creatine Kinase 170 Units/L (30-223); Globulin 3.3 g/dL (2.4-3.5); Glucose 315 mg/dL (70-105); Magnesium 1.5 mg/dL (1.6-2.6); Osmolality,Calculated 294 (280-300); Phosphorous 2.2 mg/dL (2.7-4.5); Potassium 3.9 mEq/L (3.5-5.1); Sodium 134 mEq/L (136-145); Total Protein 6.3 g/dL (6.4-8.9); eGFR For African Americans > 60 (> 60); eGFR For Non-African Americans > 60 (> 60)
[2019-10-29 02:51] LABS: Thyroid Stimulating Hormone 2.418 mcIU/mL (0.340-5.600)
[2019-10-29] MEDS ORDERED: 0.9 % Sodium Chloride 1,000 ML IVC SCH ×2 (04:15→07:30)
[2019-10-29 08:29] LABS: Estimated Average Glucose 312 mg/dl
[2019-10-29] MEDS: Sodium Ferric Gluconat/Sucrose 125 MG in 0.9 % Sodium Chloride 100 ML IVPB SCH (11:06)
[2019-10-29] MEDS: *HR* LORazepam 1 MG TABLET PO PRN ×2 (14:43→21:48)
[2019-10-29] MEDS: Apixaban 5 MG TABLET PO SCH (21:48)
[2019-10-29] MEDS: Insulin DETEMIR 100 UNIT/ML X5UNITS SQ SCH (21:49)
[2019-10-30 04:52] LABS: Hematocrit 41.3 % (37.5-50.1); Hemoglobin 12.4 g/dL (12.9-16.9); Mean Corpuscular Hemoglobin 21.8 pg (28.0-33.3); Mean Corpuscular Volume 72.7 fL (83.0-100.0); Mean Platelet Volume 8.7 fL (9.4-12.4); Platelet Count 252 K/mcL (140-400); Red Blood Count 5.68 M/mcL (4.19-5.50); White Blood Count 8.1 K/mcL (4.3-11.1)
[2019-10-30 05:10] LABS: BUN/Creatinine Ratio 21 (6-26); Blood Urea Nitrogen 20 mg/dL (8-23); Calcium 8.5 mg/dL (8.6-10.3); Carbon Dioxide 24 mEq/L (23-29); Chloride 104 mEq/L (98-107); Glucose 288 mg/dL (70-105); Osmolality,Calculated 291 (280-300); Sodium 134 mEq/L (136-145); eGFR For African Americans > 60 (> 60); eGFR For Non-African Americans > 60 (> 60)
[2019-10-30] MEDS ORDERED: Acetaminophen 325 MG TABLET PO ONE (06:34)
[2019-10-30] MEDS: Sodium Ferric Gluconat/Sucrose 125 MG in 0.9 % Sodium Chloride 100 ML IVPB SCH (08:42)
[2019-10-30] MEDS: Apixaban 5 MG TABLET PO SCH ×2 (08:44→20:26)
[2019-10-30] MEDS: Insulin LISPRO 300 UNITS/3 ML VIAL SQ SCH ×4 (08:49→20:26)
[2019-10-30] MEDS: Insulin DETEMIR 100 UNIT/ML X5UNITS SQ SCH ×2 (10:17→20:26)
[2019-10-30] MEDS ORDERED: Fluconazole 100 MG TABLET PO ONE (10:52)
[2019-10-30] MEDS: Nystatin POWDER 30 GM BOTTLE TP SCH ×2 (12:07→20:27)
[2019-10-30] MEDS: *HR* LORazepam 1 MG TABLET PO PRN ×2 (14:07→20:25)
[2019-10-31] MEDS: Clobetasol Propionate 0.05% 15 GM Cream Tube TP SCH ×3 (02:48→20:11)
[2019-10-31 06:44] LABS: Hematocrit 44.2 % (37.5-50.1); Hemoglobin 13.2 g/dL (12.9-16.9); Mean Corpuscular HGB Conc 29.9 g/dL (31.6-35.5); Mean Corpuscular Hemoglobin 21.5 pg (28.0-33.3); Mean Platelet Volume 8.4 fL (9.4-12.4); Platelet Count 286 K/mcL (140-400); Red Blood Count 6.14 M/mcL (4.19-5.50); Red Cell Distribution Width 18.8 % (11.5-14.5); White Blood Count 8.8 K/mcL (4.3-11.1)
[2019-10-31 06:51] LABS: BUN/Creatinine Ratio 18 (6-26); Blood Urea Nitrogen 17 mg/dL (8-23); Calcium 8.7 mg/dL (8.6-10.3); Carbon Dioxide 21 mEq/L (23-29); Chloride 100 mEq/L (98-107); Glucose 255 mg/dL (70-105); Osmolality,Calculated 288 (280-300); Potassium 4.4 mEq/L (3.5-5.1); Sodium 134 mEq/L (136-145); eGFR For African Americans > 60 (> 60); eGFR For Non-African Americans > 60 (> 60)
[2019-10-31] MEDS: Cefuroxime PO 500 MG TABLET PO SCH ×2 (09:23→16:54)
[2019-10-31] MEDS: Eucerin Cream 57 GM TUBE TP PRN (09:24)
[2019-10-31] MEDS: Apixaban 5 MG TABLET PO SCH ×2 (09:24→20:10)
[2019-10-31] MEDS: Insulin DETEMIR 100 UNIT/ML X5UNITS SQ SCH ×2 (09:24→20:11)
[2019-10-31] MEDS: Nystatin POWDER 30 GM BOTTLE TP SCH ×2 (09:24→20:11)
[2019-10-31] MEDS: Sodium Ferric Gluconat/Sucrose 125 MG in 0.9 % Sodium Chloride 100 ML IVPB SCH (09:27)
[2019-10-31] MEDS: Insulin LISPRO 300 UNITS/3 ML VIAL SQ SCH ×4 (09:33→20:10)
[2019-11-01] MEDS: *HR* LORazepam 1 MG TABLET PO PRN ×2 (00:23→14:21)
[2019-11-01] MEDS: Cefuroxime PO 500 MG TABLET PO SCH ×2 (06:28→17:08)
[2019-11-01] MEDS: Insulin LISPRO 300 UNITS/3 ML VIAL SQ SCH ×5 (07:57→21:08)
[2019-11-01] MEDS: Insulin DETEMIR 100 UNIT/ML X5UNITS SQ SCH ×2 (07:58→21:05)
[2019-11-01] MEDS: Apixaban 5 MG TABLET PO SCH ×2 (07:59→21:05)
[2019-11-01] MEDS: Nystatin POWDER 30 GM BOTTLE TP SCH ×2 (07:59→21:09)
[2019-11-01] MEDS: Clobetasol Propionate 0.05% 15 GM Cream Tube TP SCH ×2 (08:00→21:09)
[2019-11-01] MEDS: Sodium Ferric Gluconat/Sucrose 125 MG in 0.9 % Sodium Chloride 100 ML IVPB SCH (10:20)
[2019-11-01] MEDS: Acetaminophen 325 MG TABLET PO PRN ×2 (14:22→22:26)
[2019-11-02] MEDS: Cefuroxime PO 500 MG TABLET PO SCH ×2 (05:41→17:25)
[2019-11-02] MEDS: Apixaban 5 MG TABLET PO SCH ×2 (08:09→20:08)
[2019-11-02] MEDS: *HR* LORazepam 1 MG TABLET PO PRN ×3 (08:09→20:09)
[2019-11-02] MEDS: Insulin LISPRO 300 UNITS/3 ML VIAL SQ SCH ×7 (08:10→20:07)
[2019-11-02] MEDS: Insulin DETEMIR 100 UNIT/ML X5UNITS SQ SCH ×2 (08:10→20:09)
[2019-11-02] MEDS: Nystatin POWDER 30 GM BOTTLE TP SCH ×2 (08:11→20:08)
[2019-11-02] MEDS: Clobetasol Propionate 0.05% 15 GM Cream Tube TP SCH ×2 (08:11→20:08)
[2019-11-02] MEDS: Acetaminophen 325 MG TABLET PO PRN ×2 (08:13→17:25)
[2019-11-02] MEDS: Sodium Ferric Gluconat/Sucrose 125 MG in 0.9 % Sodium Chloride 100 ML IVPB SCH (10:08)
[2019-11-02] MEDS ORDERED: Temazepam 15 MG CAPSULE PO PRN (22:52)
[2019-11-03] MEDS: Cefuroxime PO 500 MG TABLET PO SCH ×2 (04:59→17:34)
[2019-11-03] MEDS: Insulin LISPRO 300 UNITS/3 ML VIAL SQ SCH ×7 (08:48→22:15)
[2019-11-03] MEDS: Sodium Ferric Gluconat/Sucrose 125 MG in 0.9 % Sodium Chloride 100 ML IVPB SCH (08:49)
[2019-11-03] MEDS: Apixaban 5 MG TABLET PO SCH ×2 (08:49→22:15)
[2019-11-03] MEDS: Eucerin Cream 57 GM TUBE TP PRN (08:53)
[2019-11-03] MEDS: Clobetasol Propionate 0.05% 15 GM Cream Tube TP SCH ×2 (08:53→22:17)
[2019-11-03] MEDS: Nystatin POWDER 30 GM BOTTLE TP SCH ×2 (08:53→22:17)
[2019-11-03] MEDS: Insulin DETEMIR 100 UNIT/ML X5UNITS SQ SCH ×2 (09:37→23:02)
[2019-11-03 23:19] VITALS: BP 127/90
[2019-11-04] MEDS: Cefuroxime PO 500 MG TABLET PO SCH (05:34)
== END 2019-11-04 12:10 | DRG 281 ==
LOC: CDU → SUATTDRO 21:44 → 3ANU 10-29 14:08
PROVIDERS: ADMIT Family Medicine; ATTEND Internal Medicine

== ENCOUNTER 2022-05-11 05:31 | Inpatient (IN) ==
[2022-05-11] MEDS ORDERED: Artificial Tears SOLN 15 ML BOTTLE BOTH EYES PRN (08:05)
[2022-05-11] MEDS ORDERED: Naloxone 0.4 MG/ML INJ IVP PRN (08:05)
[2022-05-11] MEDS ORDERED: Acetaminophen 325 MG TABLET PO PRN (08:05)
[2022-05-11] MEDS ORDERED: Ipratropium/Albuterol Neb 3 ML IH PRN (08:16)
[2022-05-11 08:24] LABS: ABG Base Excess -1 mEq/L (-2 to 3); ABG HCO3 23 mEq/L (21-27); ABG Oxygen Saturation 97 % (95-98); ABG PCO2 35 mmHg (35-45); ABG PH 7.42 pH Units (7.32-7.45); ABG PO2 84 mmHg (85-104); ABG TCO2 24 mEq/L (20-26); Blood Gas Modality ASSIST CONTROL; Blood Gas VT 500 cc
[2022-05-11] MEDS ORDERED: Vancomycin (wt based) 1,000 MG VIAL IVPB SCH (09:00)
[2022-05-11] MEDS: FentaNYL (PF) 1,000 MCG/100 ML IV.SOLN IVC SCH (09:12)
[2022-05-11] MEDS: Norepinephrine 4 MG/254 ML IV.SOLN IVC SCH ×2 (09:14→20:24)
[2022-05-11] MEDS: Chlorhexidine Rinse 15 ML MOUTHWASH MM SCH ×2 (09:16→20:23)
[2022-05-11] MEDS: Pantoprazole 40 MG VIAL IVP SCH (09:16)
[2022-05-11] MEDS: Azithromycin 500 MG in 0.9 % Sodium Chloride 250 ML IVPB SCH (09:21)
[2022-05-11 09:53] LABS: Basophils % 0.2 %; Eosinophils % 0.1 %; Hematocrit 37.5 % (37.5-50.1); Hemoglobin 11.3 g/dL (12.9-16.9); Immature Granulocytes % 0.8 % (0-4); Lymphocytes # 0.9 K/mcL (0.6-4.6); Lymphocytes % 6.6 %; Mean Corpuscular HGB Conc 30.1 g/dL (31.6-35.5); Mean Corpuscular Hemoglobin 25.6 pg (28.0-33.3); Mean Platelet Volume 7.8 fL (9.4-12.4); Monocytes # 0.9 K/mcL (0.0-1.3); Neutrophils # 12.2 K/mcL (1.6-8.9); Nucleated Red Blood Cells 0.2 /100 WBC (0); Platelet Count 284 K/mcL (140-400); Red Blood Count 4.41 M/mcL (4.19-5.50); Red Cell Distribution Width 16.2 % (11.5-14.5); Segmented Neutrophils % 86.3 %; White Blood Count 14.1 K/mcL (4.3-11.1)
[2022-05-11 10:06] LABS: INR 2.7; Prothrombin Time 29.7 Seconds (9.4-12.1)
[2022-05-11] MEDS: Budesonide/Formoterol 160/4.5 1 PUFF INH IH SCH ×2 (10:09→20:06)
[2022-05-11 10:17] LABS: Alanine Aminotransferase 9 Units/L (7-52); Albumin 2.6 g/dL (3.5-5.7); Albumin/Globulin Ratio 0.6 (1.1-2.2); Alkaline Phosphatase 97 Units/L (34-104); Aspartate Amino Transferase 23 Units/L (13-39); BUN/Creatinine Ratio 34 (6-26); Bilirubin,Direct 0.4 mg/dL (0.0-0.2); Bilirubin,Indirect 0.8 mg/dL (0.0-1.0); Bilirubin,Total 1.2 mg/dL (0.3-1.0); Blood Urea Nitrogen 42 mg/dL (8-23); Calcium 8.3 mg/dL (8.6-10.3); Carbon Dioxide 24 mEq/L (23-29); Chloride 110 mEq/L (98-107); Globulin 4.1 g/dL (2.4-3.5); Glucose 148 mg/dL (70-105); Magnesium 1.6 mg/dL (1.6-2.6); Osmolality,Calculated 309 (280-300); Phosphorous 3.4 mg/dL (2.7-4.5); Potassium 4.6 mEq/L (3.5-5.1); Sodium 143 mEq/L (136-145); Total Protein 6.7 g/dL (6.4-8.9); eGFR For African Americans > 60 (> 60); eGFR For Non-African Americans 56 (> 60)
[2022-05-11] MEDS ORDERED: Perflutren Lipid Microsphere 1.3 ML in 0.9 % Sodium Chloride 8.7 ML IVP PRN (10:27)
[2022-05-11] MEDS ORDERED: Amiodarone 450 MG in 0.9 % Sodium Chloride Excel Bg 241 ML IVC ONE (10:53)
[2022-05-11] MEDS ORDERED: Amiodarone Premix 150 MG/100 ML BAG IVPB ONE (10:53)
[2022-05-11] MEDS ORDERED: Ringers Solution, Lactated 1,000 ML IVC SCH (11:00)
[2022-05-11] MEDS ORDERED: *HR* Dextrose 50 % in Water (Syg) 50 ML SYRINGE IVP PRN (11:04)
[2022-05-11] MEDS ORDERED: Dextrose Gel 15 GM/37.5 ML TUBE PO PRN ×2 (11:04)
[2022-05-11] MEDS ORDERED: D5% in Water 1,000 ML IVC PRN (11:04)
[2022-05-11] MEDS ORDERED: Amiodarone Premix 360 MG/200 ML BAG IVC ONE ×3 (11:15→17:18)
[2022-05-11 11:50] LABS: % Iron Saturation 13 % (20-55); Ferritin 243 ng/mL (20-250); Iron 24 mcg/dL (65-175); Transferrin 129 mg/dL (203-362)
[2022-05-11] MEDS: Artificial Tears SOLN 15 ML BOTTLE BOTH EYES SCH ×4 (11:56→23:59)
[2022-05-11] MEDS: Insulin LISPRO 300 UNITS/3 ML VIAL SUBQ SCH ×2 (12:01→18:52)
[2022-05-11 12:22] LABS: Estimated Average Glucose 134 mg/dl; Hemoglobin A1C 6.3 %
[2022-05-11] MEDS: Piperacillin/Tazobactam 3.375 GM in 0.9 % Sodium Chloride Mini Bag 100 ML IVPB SCH ×2 (15:51→23:59)
[2022-05-11] MEDS: Amiodarone Premix 360 MG/200 ML BAG IVC SCH ×2 (17:21→17:24)
[2022-05-11] MEDS ORDERED: *HR* Heparin 5,000 UNIT/ML VIAL SQ SCH (18:00)
[2022-05-11] MEDS: Thiamine (B-1) 100 MG, Folic Acid 1 MG, MVI, adult with vitamin K 10 ML in 0.9 % Sodi... IVPB SCH (18:24)
[2022-05-11] MEDS: Apixaban 5 MG TABLET PO SCH (20:24)
[2022-05-12] MEDS: Insulin LISPRO 300 UNITS/3 ML VIAL SUBQ SCH ×5 (00:02→23:31)
[2022-05-12] MEDS: FentaNYL (PF) 1,000 MCG/100 ML IV.SOLN IVC SCH ×2 (00:25→12:02)
[2022-05-12] MEDS: Artificial Tears SOLN 15 ML BOTTLE BOTH EYES SCH ×5 (03:49→19:33)
[2022-05-12 04:25] LABS: ABG Base Excess -1 mEq/L (-2 to 3); ABG HCO3 24 mEq/L (21-27); ABG Oxygen Saturation 96 % (95-98); ABG PCO2 40 mmHg (35-45); ABG PH 7.39 pH Units (7.32-7.45); ABG PO2 86 mmHg (85-104); ABG TCO2 26 mEq/L (20-26); Blood Gas VT 500 cc
[2022-05-12] MEDS: Amiodarone Premix 360 MG/200 ML BAG IVC SCH ×2 (04:33→16:24)
[2022-05-12 04:56] LABS: Basophils # 0.1 K/mcL (0.0-0.2); Basophils % 0.5 %; Eosinophils # 0.2 K/mcL (0.0-0.6); Eosinophils % 1.4 %; Hemoglobin 11.1 g/dL (12.9-16.9); Immature Granulocytes % 1.7 % (0-4); Lymphocytes # 1.3 K/mcL (0.6-4.6); Lymphocytes % 12.7 %; Mean Corpuscular Hemoglobin 25.3 pg (28.0-33.3); Mean Corpuscular Volume 84.5 fL (83.0-100.0); Monocytes # 0.8 K/mcL (0.0-1.3); Nucleated Red Blood Cells 0.3 /100 WBC (0); Platelet Count 277 K/mcL (140-400); Red Blood Count 4.38 M/mcL (4.19-5.50); Red Cell Distribution Width 16.1 % (11.5-14.5); Segmented Neutrophils % 75.7 %; White Blood Count 10.5 K/mcL (4.3-11.1)
[2022-05-12 05:07] LABS: Prothrombin Time 22.7 Seconds (9.4-12.1)
[2022-05-12 05:10] LABS: VBG Ionized Calcium 1.09 mmol/L (1.15-1.35)
[2022-05-12 06:08] LABS: Alanine Aminotransferase 10 Units/L (7-52); Albumin 2.3 g/dL (3.5-5.7); Albumin/Globulin Ratio 0.6 (1.1-2.2); Alkaline Phosphatase 88 Units/L (34-104); Aspartate Amino Transferase 19 Units/L (13-39); BUN/Creatinine Ratio 40 (6-26); Bilirubin,Direct 0.4 mg/dL (0.0-0.2); Bilirubin,Indirect 0.3 mg/dL (0.0-1.0); Bilirubin,Total 0.7 mg/dL (0.3-1.0); Blood Urea Nitrogen 36 mg/dL (8-23); Calcium 7.8 mg/dL (8.6-10.3); Carbon Dioxide 27 mEq/L (23-29); Chloride 111 mEq/L (98-107); Globulin 3.9 g/dL (2.4-3.5); Glucose 136 mg/dL (70-105); Magnesium 1.8 mg/dL (1.6-2.6); Osmolality,Calculated 308 (280-300); Potassium 3.3 mEq/L (3.5-5.1); Sodium 144 mEq/L (136-145); Total Protein 6.2 g/dL (6.4-8.9); eGFR For African Americans > 60 (> 60); eGFR For Non-African Americans > 60 (> 60)
[2022-05-12] MEDS ORDERED: Potassium Phosphate 44 MEQ in 0.9 % Sodium Chloride 250 ML IVPB PRN (06:15)
[2022-05-12] MEDS: Vancomycin 1,250 MG/262.5 ML IV.SOLN IVPB SCH (06:15)
[2022-05-12] MEDS ORDERED: Calcium Gluconate 1gm/50mL 1 GM/50 ML BAG IVPB PRN (06:15)
[2022-05-12] MEDS: Budesonide/Formoterol 160/4.5 1 PUFF INH IH SCH ×2 (07:19→22:44)
[2022-05-12] MEDS: Chlorhexidine Rinse 15 ML MOUTHWASH MM SCH ×2 (07:55→19:34)
[2022-05-12] MEDS: Pantoprazole 40 MG VIAL IVP SCH (07:59)
[2022-05-12] MEDS: Apixaban 5 MG TABLET PO SCH ×2 (08:00→19:33)
[2022-05-12] MEDS: Azithromycin 500 MG in 0.9 % Sodium Chloride 250 ML IVPB SCH (08:01)
[2022-05-12] MEDS: Piperacillin/Tazobactam 3.375 GM in 0.9 % Sodium Chloride Mini Bag 100 ML IVPB SCH ×3 (09:24→23:19)
[2022-05-12] MEDS: Norepinephrine 4 MG/254 ML IV.SOLN IVC SCH ×2 (09:34→19:35)
[2022-05-12] MEDS: *HR* Digoxin 0.5 MG/2 ML AMPUL IVP SCH ×3 (10:54→21:58)
[2022-05-12] MEDS: Thiamine (B-1) 100 MG, Folic Acid 1 MG, MVI, adult with vitamin K 10 ML in 0.9 % Sodi... IVPB SCH (16:23)
[2022-05-12 18:13] LABS: Quantiferon Mitogen minus NIL 4.91 IU/mL
[2022-05-13] MEDS: Amiodarone Premix 360 MG/200 ML BAG IVC SCH (01:32)
[2022-05-13 03:49] LABS: Hemoglobin 11.5 g/dL (12.9-16.9); Red Cell Distribution Width 16.5 % (11.5-14.5)
[2022-05-13 03:50] LABS: Basophils # 0.1 K/mcL (0.0-0.2); Basophils % 0.5 %; Eosinophils # 0.2 K/mcL (0.0-0.6); Hematocrit 39.8 % (37.5-50.1); Immature Granulocytes % 2.9 % (0-4); Lymphocytes # 0.9 K/mcL (0.6-4.6); Lymphocytes % 5.7 %; Mean Corpuscular HGB Conc 28.9 g/dL (31.6-35.5); Mean Corpuscular Hemoglobin 25.8 pg (28.0-33.3); Mean Corpuscular Volume 89.2 fL (83.0-100.0); Mean Platelet Volume 8.3 fL (9.4-12.4); Monocytes # 1.3 K/mcL (0.0-1.3); Monocytes % 8.1 %; Neutrophils # 13.4 K/mcL (1.6-8.9); Nucleated Red Blood Cells 0.1 /100 WBC (0); Platelet Count 305 K/mcL (140-400); Red Blood Count 4.46 M/mcL (4.19-5.50); Segmented Neutrophils % 81.8 %; White Blood Count 16.4 K/mcL (4.3-11.1)
[2022-05-13 03:54] LABS: VBG Ionized Calcium 1.19 mmol/L (1.15-1.35)
[2022-05-13 03:56] LABS: INR 1.7; Prothrombin Time 19.3 Seconds (9.4-12.1)
[2022-05-13 04:17] LABS: BUN/Creatinine Ratio 34 (6-26); Blood Urea Nitrogen 29 mg/dL (8-23); Carbon Dioxide 26 mEq/L (23-29); Chloride 112 mEq/L (98-107); Glucose 160 mg/dL (70-105); Osmolality,Calculated 305 (280-300); Phosphorous 5.3 mg/dL (2.7-4.5); Potassium 4.8 mEq/L (3.5-5.1); Sodium 143 mEq/L (136-145); eGFR For African Americans > 60 (> 60); eGFR For Non-African Americans > 60 (> 60)
[2022-05-13 04:59] LABS: Platelet Estimate Normal (Normal)
[2022-05-13] MEDS: Vancomycin 1,250 MG/262.5 ML IV.SOLN IVPB SCH (05:08)
[2022-05-13] MEDS: Insulin LISPRO 300 UNITS/3 ML VIAL SUBQ SCH (05:34)
[2022-05-13] MEDS: Apixaban 5 MG TABLET PO SCH (07:42)
[2022-05-13 07:51] VITALS: TEMP 96.8
[2022-05-13] MEDS: Piperacillin/Tazobactam 3.375 GM in 0.9 % Sodium Chloride Mini Bag 100 ML IVPB SCH (08:59)
[2022-05-13] MEDS: Norepinephrine 4 MG/254 ML IV.SOLN IVC SCH (09:04)
[2022-05-13] MEDS: Pantoprazole 40 MG VIAL IVP SCH (09:27)
[2022-05-13] MEDS: Budesonide/Formoterol 160/4.5 1 PUFF INH IH SCH ×2 (09:29→19:50)
[2022-05-13 09:32] LABS: ABG Base Excess -8 mEq/L (-2 to 3); ABG HCO3 27 mEq/L (21-27); ABG Oxygen Saturation 81 % (95-98); ABG PCO2 121 mmHg (35-45); ABG PH 6.95 pH Units (7.32-7.45); ABG PO2 75 mmHg (85-104); ABG TCO2 31 mEq/L (20-26)
[2022-05-13 10:34] VITALS: BP 81/59; PULSE 72; O2SAT 94
[2022-05-13] MEDS ORDERED: Morphine Sulfate 2 MG/ML SYRINGE IVP PRN (10:43)
[2022-05-13] MEDS ORDERED: *HR* LORazepam 2 MG/ML VIAL IVP PRN (10:44)
[2022-05-15 08:22] LABS: Immunoglobulin G 1805 mg/dL (768-1632)
[2022-05-15 08:23] LABS: Immunoglobulin A 449 mg/dL (68-408); Immunoglobulin M 39 mg/dL (35-263)
[2022-05-15 09:20] LABS: Alpha 2 Globulin (PEP) 0.97 g/dL (0.48-1.05); Beta Globulin (PEP) 0.77 g/dL (0.48-1.10)
[2022-05-15 13:15] LABS: IFE Reflexed IFE Done
== END 2022-05-13 11:40 | disposition expired | DRG 871 ==
LOC: ICNU
PROVIDERS: ADMIT Internal Medicine; ATTEND Internal Medicine